=== PATIENT | female | born 1965 | race Caucasian/White ===

== ENCOUNTER → 2017-05-10 | Day surgery (SDC) | payer MEDICARE, OTHER ==
[~2017-05-10] MED LIST: ABILIFY; ABILIFY PO; ALPRAZOLAM; ALPRAZOLAM PO; GABITRIL4 MG PO; GLUCOPHAGE500 MG PO; LAMICTAL PO; LEVEMIR100 U/ML SUBQ; METFORMIN PO; NAPROXEN250 MG; NOVOLOG100 U/M3 SUBQ; OXYCODON HCL-1 UDTAB PO; OXYCONTIN; OXYCONTIN PO; PAXIL PO; PENICILLIN PO; PERCOCET10; PERCOCET10 PO; PHENERGAN PO; PREDNISONE; SYNTHROID; SYNTHROID PO; SYNTHROID0.2 MG PO; TIZANIDINE HCL4 M1 PO; TRAZODONE PO; VALIUM10 MG PO; XANAX0.5 MG PO; ZOLOFT
--- NOTE | ~2017-05-10 | OR ---
Unit #: [id number] #: [id number] Patient: DEDRICK FINNEGAN [id number] [address] [place], [place] [address] [id number] MR#: [id number] NAME: DEDRICK FINNEGAN ROOM: Date of Procedure: 05/10/2017 Admission Date: 05/10/2017 Surgeon: Shai Yi M.D. : 1965 Attending Physician: Shai Yi M.D. Primary Care Physician: Cyn Robles M.D. OPERATIVE REPORT PREOPERATIVE DIAGNOSIS Chronic regional pain syndrome of left lower extremity. POSTOPERATIVE DIAGNOSIS Chronic regional pain syndrome of left lower extremity. PROCEDURE PERFORMED Lumbar sympathetic block with intravenous sedation and fluoroscopic guidance for needle localization. INDICATIONS FOR PROCEDURE The patient is a 50-year-old female with longstanding CRPS affecting left lower extremity. She was treated medically with p.r.n. sympathetic blockade. CRPS symptoms recently flared after a fall on a cast, twisting her ankle. Last sympathetic block was in 12/2015. Prior to that, she also done well for about a year. Based on history, pathology, and symptomatology, we are going to proceed with a sympathetic block today. DESCRIPTION OF PROCEDURE The patient was placed in a prone position. Standard monitors were applied. 4 mg of Versed were given for sedation and anxiolysis, which were adequate. Vital signs remained stable. Sterile prep and drape then of the thoracolumbar area was performed. The skin then to the left of midline at the L1 level was localized with 1% lidocaine. A long 22-gauge Quincke point spinal needle was then advanced via left lateral approach with biplanar fluoroscopy, advanced via the lateral border of the L1 vertebral body. The needle was then walked up to the anterolateral border of L1. Position was confirmed with loss of resistance technique and biplanar fluoroscopy with radiographic contrast. After confirming proper positioning, a total a 10 mL of 0.25% bupivacaine was deposited. There was negative intermittent aspiration every 2 to 3 mL. The patient tolerated the procedure otherwise well and was discharged to the recovery room in stable condition. Dictated by... Shai Yi M.D. LHP/padmini Unit #: [id number] #: [id number] Patient: DEDRICK FINNEGAN TD: 05/10/2017 23:48 JOB #: [id number] OPERATIVE REPORT Page 1 of 1 X Shai Yi MD X PROCEDURE OPERATIVE NOTE
== END | disposition home or self-care (01) ==
LOC: CCSC 07:31
DX: G90.522 Complex regional pain syndrome I of left lower limb (principal); Z88.6 Allergy status to analgesic agent; Z88.8 Allergy status to other drugs, medicaments and biological substances; Z79.4 Long term (current) use of insulin
CPT/HCPCS: J1040; J2250